=== PATIENT | male | born 1995 | race Caucasian/White ===

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

== ENCOUNTER → 2018-02-19 | Outpatient (CLI) | payer OTHER ==
--- NOTE | 2018-02-19 18:18 | MR ---
EXAMINATION TYPE: MR knee RT wo con DATE OF EXAM: 02/19/2018 COMPARISON: NONE HISTORY: Pain TECHNIQUE: Multiplanar, multisequence imaging of the right knee is performed without IV contrast. FINDINGS: Quadriceps and patellar tendons are intact. No sizable collection in the suprapatellar burs a. Patellar cartilage is maintained. Anterior cruciate and posterior cruciate ligaments have a normal appearance. Medial collateral and lateral collateral ligaments have a normal appearance. Lateral meniscus has a normal appearance There is abnormal signal within the posterior horn of the medial meniscus suspicious for a simple vianey ear tear. No sizable popliteal fossa cyst noted. Tiny fluid in the popliteal fossa. IMPRESSION: Simple linear tear posterior horn medial meniscus.
== END | disposition home or self-care (01) ==
LOC: RADMRIMAIN 17:17
PROVIDERS: ATTEND Internal Medicine
DX: S83.241A Other tear of medial meniscus, current injury, right knee, initial encounter (principal)

== ENCOUNTER 2020-01-29 19:08 | Emergency (ER) | payer OTHER ==
[2020-01-29 19:16] VITALS: RESP 16; TEMP 98
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
--- NOTE | 2020-01-29 20:05 | CT ---
EXAMINATION TYPE: CT brain cspine wo con DATE OF EXAM: 01/29/2020 COMPARISON: None HISTORY: Fall today Headache. Neck pain. CT DLP: 1417.8 mGycm Automated exposure control for dose reduction was used. Ventricles have normal size. There is no mass effect nor midline shift. There is no sign of intracran ial hemorrhage. The calvarium is intact. There is no evidence of cerebral edema. Cervical vertebra have normal spacing and alignment. Facet joints appear normal. Posterior elements a re intact. Skull base is intact. There is no evidence of a fracture. Prevertebral soft tissues appear normal. IMPRESSION: Normal CT scan of the brain. Normal CT scan cervical spine.
--- NOTE | 2020-01-29 20:38 | XR ---
EXAMINATION TYPE: XR knee complete RT DATE OF EXAM: 01/29/2020 COMPARISON: NONE HISTORY: Knee pain TECHNIQUE: 3 views FINDINGS: Joint spaces are normal. I see no fracture nor dislocation. There is no sign of joint effus ion. IMPRESSION: Negative right knee exam.
--- NOTE | 2020-01-29 20:39 | XR ---
EXAMINATION TYPE: XR Hip Complete LT DATE OF EXAM: 01/29/2020 COMPARISON: NONE HISTORY: Hip pain TECHNIQUE: 2 views FINDINGS: There is no evidence of fracture nor dislocation. Hip joint space is fairly normal. There i s no sign of hip dysplasia. Sacroiliac joint is intact. IMPRESSION: Negative left hip exam.
[2020-01-29 21:26] VITALS: BP 119/64; PULSE 86
== END 2020-01-29 21:25 | disposition home or self-care (01) ==
LOC: EC 19:08
DX: S80.01XA Contusion of right knee, initial encounter (principal); S06.9X9A Unspecified intracranial injury with loss of consciousness of unspecified duration, initial encounter; F17.200 Nicotine dependence, unspecified, uncomplicated; W13.2XXA Fall from, out of or through roof, initial encounter
CPT/HCPCS: 70450; 72125; 73502; 99284